=== PATIENT | female | born 1965 | race Caucasian/White ===

== ENCOUNTER 2019-07-18 22:55 | Inpatient (IN) | payer OTHER ==
[~2019-07-18] VITALS: Ht 165.1 cm; Wt 82.6 kg
[~2019-07-18 22:55] MED LIST: HUMULIN N100 UNIT/1 SQ; HUMULINR100 SQ
--- NOTE | 2019-07-18 23:15 | NUR ---
UNABLE TO OBTAIN EKG ON ARRIVAL. PATIENT ANXIOUS AND SOA. PHYSICIAN NOTIFIED.
[2019-07-18 23:16] VITALS: BP 142/87
[2019-07-19] VITALS (23 sets, daily range): BP systolic 93–137; BP diastolic 53–90
[2019-07-19 00:03] LABS: ABSOLUTE EOSINOPHILS 0.1 thou/uL (0.0-0.7); ABSOLUTE LYMPHOCYTES 1.2 thou/uL (0.8-5.3); ABSOLUTE MONOCYTES 0.6 thou/uL (0.0-1.2); ABSOLUTE NEUTROPHILS 5.4 thou/uL (1.6-8.1); BASOPHILS 0.5 %; EOSINOPHILS 1.2 %; HEMATOCRIT 34.6 % (37.0-47.0); HEMOGLOBIN 11.9 gm/dL (12.0-15.0); MCH 32.4 pg (26.0-34.0); MCHC 34.3 g/dL (28.0-37.0); MCV 94.5 fL (80.0-100.0); MONOCYTES 8.3 %; MPV 9.5 fl. (7.2-11.1); NUCLEATED RBCS 0 /100WBC; PLATELET COUNT* 334 thou/uL (150-400); RBC 3.66 mil/uL (4.20-5.00); RDW-CV 13.5 % (10.5-14.5); WBC 7.3 thou/uL (4.0-11.0)
[2019-07-19 00:21] LABS: PROTIME 9.8 Seconds (9.20-11.50)
[2019-07-19 00:31] LABS: CALCIUM 8.9 mg/dL (8.5-10.1); CREATININE 1.1 mg/dL (0.6-1.3); POTASSIUM 3.9 mmol/L (3.5-5.1)
[2019-07-19 00:40] LABS: ALBUMIN 2.7 g/dL (3.4-5.0); MAGNESIUM 2.1 mg/dL (1.8-2.4); TOTAL BILIRUBIN 0.6 mg/dL (<0.1-1.0)
[2019-07-19 01:31] LABS: BE -3.7 mmol/L (-2 to +3); PCO2 49.6 mmHg (35.0-45.0)
[2019-07-19 01:37] LABS: pH 7.287 (7.340-7.450)
[2019-07-19 01:38] LABS: PO2 163.7 mmHg (75.0-100.0)
--- NOTE | 2019-07-19 05:08 | NUR ---
PATIENT AWOKE WHEN RN IN ROOM ACCESSING GROIN SITE. PATIENT EDUCATION DONE WITH PATIENT ON PROCEDURE AND AFTERCARE. PATIENT PLACED ON 3LNC, TAKEN OFF NRB. O2 SATURATION MAINTAINING IN MID 90'S. PATIENT VERBALIZED UNDERSTANDING OF STATUS AND PLACEMENT. VERBALIZED THAT SHE WOULD LIKE TO BACK TO SLEEP IF SHE WAS ABLE TO.
[2019-07-19 09:38] LABS: HEMATOCRIT 32.3 % (37.0-47.0); HEMOGLOBIN 11.2 gm/dL (12.0-15.0); MCH 32.5 pg (26.0-34.0); MCHC 34.7 g/dL (28.0-37.0); MCV 93.7 fL (80.0-100.0); MPV 9.4 fl. (7.2-11.1); RBC 3.45 mil/uL (4.20-5.00); RDW-CV 13.6 % (10.5-14.5); WBC 7.9 thou/uL (4.0-11.0)
[2019-07-19 09:58] LABS: ALBUMIN 2.5 g/dL (3.4-5.0); ALKALINE PHOSPHATASE 323 U/L (46-116); ANION GAP 9 mmol/L (7-16); BUN 24 mg/dL (7-18); CALCIUM 8.5 mg/dL (8.5-10.1); CHLORIDE 94 mmol/L (98-107); CHOLESTEROL 143 mg/dL (<200); CO2 24 mmol/L (21-32); CREATININE 0.9 mg/dL (0.6-1.3); GLUCOSE 165 mg/dL (70-99); HDL CHOLESTEROL 39 mg/dL (>40); LDL CHOLESTEROL 87 mg/dL (<100); SGOT 78 U/L (15-37); SGPT 80 U/L (30-65); SODIUM 127 mmol/L (136-145); TC:HDL 3.7 Ratio (Not establshd); TOTAL BILIRUBIN 0.5 mg/dL (<0.1-1.0); TOTAL PROTEIN 7.5 g/dL (6.4-8.2); TRIGLYCERIDE 87 mg/dL (<150); VLDL 17 mg/dL (<40)
[2019-07-19 10:01] LABS: SERUM ASSESSMENT Clear; TROPONIN-I LEVEL 7.44 ng/mL (<0.06)
--- NOTE | 2019-07-19 10:48 | EKG ---
[place] [address] ELECTROCARDIOGRAM REPORT Name: MARCUS KABA Room: [address] ADM IN .R.#: [id number] Admission: 07/19/19 Attend Phys: Will Guillen, Discharge: Date of : 69 Date of Service: 07/18/19 2342 Report #: [id number] THIS REPORT FOR: //name// [facility] ED Test Date: 2019-07-18 Test Time: 23:42:31 Pat Name: MARCUS KABA Department: Room: [address] Gender: F Can Tender: [place] : 1965 Requested By: Nafisa Kim Order Number: [id number] Shahnaz MD: Leonel Flores Measurements Intervals [place] Rate: 113 P: 52 [place]: 120 QRS: 262 QRSD: 84 T: 36 QT: 317 QTc: 435 Interpretive Statements Sinus tachycardia artifact noted Inferoposterior infarct, acute (LCx) Anterolateral infarct, age indeterminate ST depression V1-V3, suggest recording posterior leads No previous ECG available for comparison Electronically Signed On 07-19-2019 10:47:27 CDT by Leonel Flores [email or web address] <ELECTRONICALLY SIGNED> By: Leonel Flores MD, [facility] 07/19/19 1047 2342 2342 Leonel Flores MD, [facility] /EPI
--- NOTE | 2019-07-19 10:50 | EKG ---
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[place] : 1965 Requested By: Nafisa Kim Order Number: [id number] MD: Leonel Flores Measurements Intervals [place] Rate: 112 P: 54 [place]: 126 QRS: -80 QRSD: 90 T: 60 QT: 319 QTc: 436 Interpretive Statements Sinus tachycardia Inferoposterior infarct, acute (LCx) Anterolateral infarct, age indeterminate ST depression V1-V3, suggest recording posterior leads Electronically Signed On 07-19-2019 10:48:35 CDT by Leonel Flores [email or web address] <ELECTRONICALLY SIGNED> By: Leonel Flores MD, [facility] 07/19/19 1048 2358 2358 Leonel Flores MD, [facility] /EPI
--- NOTE | 2019-07-19 10:50 | EKG ---
[place] [address] ELECTROCARDIOGRAM REPORT Name: MARCUS KABA Room: [address] ADM IN .R.#: [id number] Admission: 07/19/19 Attend Phys: Will Guillen, Discharge: Date of : 69 Date of Service: 07/19/19 0626 Report #: [id number] THIS REPORT FOR: //name// [facility] Test Date: 2019-07-19 Test Time: 06:26:27 Pat Name: MARCUS KABA Department: Room: [address] Gender: F Religious Assistant: [place] : 1965 Requested By: Leonel Flores Order Number: [id number] Shahnaz MD: Leonel Flores Measurements Intervals [place] Rate: 94 P: 54 [place]: 101 QRS: 268 QRSD: 86 T: 72 QT: 356 QTc: 446 Interpretive Statements Sinus rhythm Short AR interval Consider inferior infarct Posterior infarct, acute (LCx) Anterolateral infarct, age indeterminate ST elevation, consider inferior injury Electronically Signed On 07-19-2019 10:49:10 CDT by Leonel Flores [email or web address] <ELECTRONICALLY SIGNED> By: Leonel Flores MD, [facility] 07/19/19 1049 0626 0626 Leonel Flores MD, [facility] /EPI
--- NOTE | 2019-07-19 11:24 | CARD ---
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 Flores Manager [employer]oles[employer], Helene Myers RN RN, Cherry Mendez RTR Scrub, James Leon RTR Monitor Procedures Performed Left Heart Cath w/or w/o Coronaries [id number] [facility] BETINA Place w/wo Plasty Single CIRC [id number] Hemostasis w/ Angioseal Indication Abnormal ECG, STEMI (>6 hrs to = 12 hrs), Dyspnea Risk Factors Diabetes Admission/Lab Medications/Medications given during procedure Glycoprotein IllbIlla Inhibitors, Heparin Unfract., Zofran (Ondansetron) IV 4 mg, Lidocaine Subcut 20 ml, Lasix (Furosemide) IV 40 ml per hr, Promethazine IV 12.5 mg, Morphine IV 4 mg, Heparin IV 2000 units, Aggrastat IV 7.5 mcg per min Procedure Narrative The patient was brought emergently to the Cardiac Catheterization Laboratory and was prepped and draped in a sterile manner. The right femoral was infiltrated with 2% Lidocaine subcutaneous anesthesia. A [place] 6 FR sheath was inserted into the right femoral artery. Coronary angiography was performed using coronary diagnostic catheters. The right coronary system was accessed and visualized with a Diagnostic JR4 6Fr catheter. The left coronary system was accessed and visualized with a Diagnostic JL4 6Fr catheter. The left ventricle was accessed and visualized with a Diagnostic JR4 6Fr catheter. Left ventricular/Aortic Valve gradient assessed [place] [address] CARDIAC CATH REPORT Name: MARCUS KABA Room: [address]#: [id number] Admission: 07/19/19 Attend Phys: Will Guillen MD Discharge: Date of : 69 Report #: [id number] Closure device was deployed with a 6 Fr Angioseal STS 6Fr. The patient tolerated the procedure well and there were no complications associated with the procedure. There was no hematoma. Intraoperative Conscious Sedation Sedation start time: 104 Case end Time: 145 No sedation Fluoro Time: 8.8 minutes Dose: DAP 10077 cGycm2 1431.88 mGy Contrast Type and Amount: Visipaque 120 ml Coronary Angiography The patient's coronary anatomy is right dominant. Diagnostic Cath Left Main 30% proximal stenosis LAD chronically occluded after a small diagonal branch Circumflex appearred actuely occluded after 2 small marginal branches Right Coronary 30% proximal and mid stenosis noted. Collaterals noted from the distal RCA to the distal LAD Left Ventriculography Left Ventriculography was not performed. Hemodynamics The aortic pressure is 143/83 mmHg with a mean of 113 mmHg. The left ventricular pressure is 154/20 mmHg with a mean of mmHg. The left ventricular end diastolic pressure is 35 mmHg. There was no gradient across the aortic valve upon pullback. Pullback from the left ventricle to the aorta revealed no gradient across the aortic valve. PCI Technique Lesion Anticoagulation was achieved with Heparin. bolus and infusion of IV aggrastat given Percutaneous coronary intervention was performed on the mid circumflex artery segment. The lesion stenosis prior to intervention was 100% with GERRY 0 flow. A 6F XB 4.0 Guide Catheter was used to engage the Left ostium. A Choice PT Wire 182cm Interventional Guidewire was used to cross the lesion. BALLOON DILATION A Balloon catheter Trek RX 2.5 X 8 was inserted and inflated up to 6.00atm for 11seconds. Repeat [place] [address] CARDIAC CATH REPORT Name: MARCUS KABA Room: [address] IN .R.#: [id number] Admission: 07/19/19 Attend Phys: Will Guillen MD Discharge: Date of : 69 Report #: [id number] post-dilatation results: 50% stenosis with thrombus noted. Additional Inflation: 8.00atm for 9seconds. Additional Inflation: 8.00atm for 10seconds. Unable to cross the occluded circumflex with a BMW quide wire STENT DEPLOYMENT A drug-eluting stent Peterman RX Stent 2.5X34mm was inserted and inflated up to 7.00atm for 15seconds. Repeat angiography revealed the following post-stent deployment results: 0% stenosis. Additional Inflation: 7.00atm for 10seconds. Additional Inflation: 13.00atm for 10seconds. Final angiography reveals 0 % stenosis with GERRY 3 flow. Conclusion 1. Chronic occlusion of the mid LAD that filled retrograde by collaterals from the distal RCA 2. Acute occlusion of the mid circumflex artery. 3. successful placement of a drug eluting stent in the circumflex artery. 4. acute pulmonary edema treated with IV Lasix Recommendations Cardiac Rehabilitation Referral Agg[facility] Medical Therapy <ELECTRONICALLY SIGNED> By: Leonel Flores MD, [facility] 07/19/19 1122 21 1122Davidiego Flores MD, [facility] /INF
--- NOTE | 2019-07-19 12:32 | NUR ---
Nutrition: Pt admitted with NC. Consult recevied for DM. Pt has PMHx of DM. Meds noted. Labs: BG 165, albumin 2.5. Diet advanced to CHO controlled now. Wt: 182#. RD will follow up with pt when out of ICU to offer further DM educ. Protein stores are low. Hopeful for good po intake. Mild risk at this time. F/u 07/24/19.
[2019-07-19 12:44] LABS: AMP/METHAMP Negative (Negative); BARBITURATES Negative (Negative); BENZODIAZEPINES Negative (Negative); COCAINE Negative (Negative); METHADONE Negative (Negative); OPIATES POSITIVE (Negative); PCP Negative (Negative); THC Negative (Negative)
--- NOTE | 2019-07-19 12:54 | 2DMMODE ---
[place] [address] 2 D/M-MODE ECHOCARDIOGRAM Name: MARCUS KABA Room: [facility] ADM IN .R.#: [id number] Admission: 07/19/19 Attend Phys: Will Guillen, Discharge: Date of : 69 Date of Service: 07/19/19 1253 Report #: [id number] THIS REPORT FOR: cc: Leonel Flores MD, FACC, David R. MD FACC Blick, David R. MD FACC ~ APPROVED REPORT Study performed: 07/19/2019 10:10:53 EXAM: Comprehensive 2D, Doppler, and color-flow Echocardiogram Patient Location: In-Patient Room #: [facility] Status: routine BSA: 1.90 HR: 107 bpm BP: 115/73 mmHg Rhythm: NSR Other Information Study Quality: Good Risk Factors: Cardiac Risk Factors: DM Indications Abnormal ECG Acute [place] Congestive Heart Failure Pleural Effusion 2D Dimensions IVSd: 10.31 (7-11mm) LVOT Diam: 18.07 (18-24mm) LVDd: 48.79 mm PWd: 6.15 (7-11mm) Ascending Ao: 27.30 (22-36mm) LVDs: 38.43 (25-40mm) Aortic Root: 24.93 mm Volumes Left Atrial Volume (Systole) LA ESV Index: 27.20 mL/m2 Aortic Valve AoV Peak Riki.: 1.12 m/[place] [address] 2 D/M-MODE ECHOCARDIOGRAM Name: MARCUS KABA Room: [address] IN .R.#: [id number] Admission: 07/19/19 Attend Phys: Will Guillen, Discharge: Date of : 69 Date of Service: 07/19/19 1253 Report #: [id number] AO Peak Gr.: 5.02 mmHg LVOT Max P.47 mmHg AO Mean Gr.: 2.91 mmHg LVOT Mean P.33 mmHg LVOT Max V: 0.79 m/s AO V2 VTI: 17.87 cm LVOT Mean V: 0.54 m/s ZOILA (VTI): 1.88 cm2 LVOT V1 VTI: 13.08 cm Mitral Valve E/A Ratio: 2.95 MV Decel. Time: 132.55 ms MV E Max Riki.: 0.99 m/s MV PHT: 38.44 ms MVA (PHT): 5.72 cm2 TDI E/Lateral E': 9.90 E/Medial E': 9.90 Medial E' Riki.: 0.10 m/s Lateral E' Riki.: 0.10 m/s Pulmonary Valve PV Peak Riki.: 0.78 m/s PV Peak Gr.: 2.45 mmHg Tricuspid Valve RAP Estimate: 15.00 mmHg TR Peak Gr.: 48.31 mmHg RVSP: 63.00 mmHg PA Pressure: 63.00 mmHg Left Ventricle Left ventricle is mildly dilated. Akinesis noted of the posterolateral wall and apex There is normal left ventricular wall thickness. Left ventricular systolic function is moderately decreased. LVEF is 25-30%. Grade IV - fixed restrictive diastolic dysfunction. Right Ventricle The right ventricle is normal size. The right ventricular systolic function is normal. Atria The left atrium size is normal. The right atrium size is normal. Aortic Valve Mild aortic valve sclerosis. No aortic regurgitation is present. There is no aortic valvular stenosis[place] [address] 2 D/M-MODE ECHOCARDIOGRAM Name: MARCUS KABA Room: [address] IN [facility]#: [id number] Admission: 07/19/19 Attend Phys: Will Guillen, Discharge: Date of : 69 Date of Service: 07/19/19 1253 Report #: [id number] The mitral valve is normal in structure. Moderate mitral regurgitation. No evidence of mitral valve stenosis. Tricuspid Valve The tricuspid valve is normal in structure. Moderatetricuspid regurgitation. estimated pa pressure 55 mm Hg Pulmonic Valve The pulmonary valve is normal in structure. There is no pulmonic valvular regurgitation. Great Vessels The aortic root is normal in size. IVC is dilated and collapses <50% with inspiration. Pericardium There is no pericardial effusion. Left pleural effusion. <Conclusion> Left ventricle is mildly dilated. Akinesis noted of the posterolateral wall and apex LVEF is 25-30%. Mild aortic valve sclerosis. Moderate mitral regurgitation. Moderatetricuspid regurgitation. estimated pa pressure 55 mm Hg Left pleural effusion. <ELECTRONICALLY SIGNED> By: Leonel Flores MD, [facility] 07/19/19 1253 1253 1253 Leonel Flores MD, FAC /INF
--- NOTE | 2019-07-19 14:12 | CON ---
[address] [address] CONSULTATION Name: SENDYMARCUS Room: [address] IN M.R.#: [id number] Admission: 07/19/19 Attend Phys: Will Guillen MD Discharge: Date of : 69 Report #: [id number] THIS REPORT FOR: //name// cc: Leonel Flores MD [facility] Leonel Flores MD [facility] ~ THIS REPORT FOR: //name// CC: Will Flores DATE OF SERVICE: 07/19/2019 CARDIOLOGY CONSULTATION HISTORY OF PRESENT ILLNESS: The patient is a 53-year-old white female, diabetic, who I was asked to see in the Emergency Room after she complained of being short of breath and was noted to have an abnormal ECG. There are no old records available. No family members available. According to the patient, she has been short of breath for several days. She has noticed some lower extremity edema. She has no previous history of heart disease. Today, she became diaphoretic and nauseated. Her brought her to the Emergency Room tonight at approximately 11:00 p.m. ECG showed evidence of acute inferior ST-segment elevation myocardial infarction. I was asked to see her on an emergent basis. She is not very active and denies any recent chest pain, jaw pain, palpitations, syncope, fever or cough. PAST MEDICAL HISTORY: Only significant for . She has a long history of diabetes. MEDICATIONS: Her only medications include insulin and estrogen. ALLERGIES: She has no known drug allergies. FAMILY HISTORY: Positive for heart disease. SOCIAL HISTORY: She is . She and her live in [place], [place]. Quit smoking 10 years ago. Occasionally drinks alcohol. REVIEW OF SYSTEMS: No history of stroke, asthma, GI bleeding, liver disease, kidney disease, cancer, psychiatric illness or chronic skin condition. PHYSICAL EXAMINATION: GENERAL: Revealed a middle-aged female, appeared in moderate distress secondary to shortness of breath. VITAL SIGNS: Her blood pressure is 140/90, pulse is 100. HEENT: She is anicteric. Conjunctivae are pink. [place]ucous [place] [address] CONSULTATION Name: MARCUS KABA Robe Room: [address]#: [id number] Admission: 07/19/19 Attend Phys: Will Guillen MD Discharge: Date of : 69 Report #: [id number] NECK: Veins do not appear distended. No carotid bruits. CHEST: Decreased breath sounds at bases. CARDIOVASCULAR: Regular rate and rhythm, no murmur. ABDOMEN: Soft. EXTREMITIES: Had no edema. SKIN: Cool and dry. NEUROLOGIC: Nonfocal. DIAGNOSTIC DATA: ECG showed a sinus rhythm, ST-segment elevation in II, III and aVF, ST-segment depression in V1 through V3. Her chest x-ray showed cardiomegaly, bilateral pleural effusions and pulmonary edema. LABORATORY DATA: Sodium 126, potassium 3.9, creatinine 1.1, glucose 226, SGOT 103, alkaline phosphate 368, SGPT 92. Albumin 2.7. Her troponin is 7.1. BNP 4730. Her white blood cell count 7.3 and hematocrit 34.6. IMPRESSION AND RECOMMENDATIONS: 1. Acute inferior ST-segment elevation myocardial infarction. Recommend urgent cardiac catheterization. 2. Acute pulmonary edema. Recommend Lasix. We will check echocardiogram. 3. Diabetes. We will check lipid profile. 4. Previous tobacco abuse. The time on my Critical Care was from 12:00 a.m. until 2:00 a.m. for a total of 2 hours or 120 minutes. <ELECTRONICALLY SIGNED> By: Leonel Flores MD, FACC 07/19/19 1412 0215 0244Dtierney Flores MD, FACC /nt
--- NOTE | 2019-07-19 14:40 | NUR ---
ICU rounds: [address], may need open heart, cardiology following. SOB on o2, sats fine, possible PE. Type 1 diabetic, self monitoring at home. CM faxed PCP info to unit for nurse to provide Pt. Pt resides at home with . A&O. No DME. No hx of HH or SNF. Following.
[2019-07-19 15:04] LABS: URINE BILIRUBIN 1+ (Negative); URINE BLOOD 3+ (Negative); URINE CLARITY TURBID; URINE COLOR RED; URINE GLUCOSE-RANDOM NEGATIVE (Negative); URINE KETONES NEGATIVE (Negative); URINE LEUKOCYTES-REFLEX NEGATIVE (Negative); URINE NITRITE-REFLEX NEGATIVE (Negative); URINE PROTEIN TRACE (Negative); URINE SPECIFIC GRAVITY 1.015 (1.005-1.030)
[2019-07-19 15:15] LABS: ICTOTEST (BILI CONFIRMATORY) Negative (Negative)
[2019-07-19 15:17] LABS: BACTERIA-REFLEX 1-9 Few /HPF (None Seen); CASTS None Seen /LPF (None Seen); CRYSTALS None Seen /LPF (None Seen); SQUAMOUS 0-3 Few /LPF (0-3); URINE RBC >20 Many /HPF (0-2); URINE WBC-REFLEX 0-5 Rare /HPF (0-5)
--- NOTE | 2019-07-19 19:07 | NUR ---
PATIENT REMAINS SOA URINE OUT NEGLIGIBLE. DENIES PAIN. PROGRESSING.
[2019-07-20] VITALS (21 sets, daily range): BP systolic 68–112; BP diastolic 30–76
[2019-07-20 03:07] LABS: GLYCOHEMOGLOBIN (HGB A1C) 8.9 % (4.8-5.6)
[2019-07-20 03:36] LABS: HEMATOCRIT 30.3 % (37.0-47.0); HEMOGLOBIN 10.4 gm/dL (12.0-15.0); MCH 32.3 pg (26.0-34.0); MCHC 34.3 g/dL (28.0-37.0); MCV 93.9 fL (80.0-100.0); MPV 9.3 fl. (7.2-11.1); RBC 3.22 mil/uL (4.20-5.00); RDW-CV 13.6 % (10.5-14.5); WBC 7.4 thou/uL (4.0-11.0)
[2019-07-20 04:07] LABS: ALBUMIN 2.5 g/dL (3.4-5.0); CREATININE 1.7 mg/dL (0.6-1.3); POTASSIUM 5.5 mmol/L (3.5-5.1); TOTAL BILIRUBIN 0.6 mg/dL (<0.1-1.0)
[2019-07-20 04:12] LABS: TROPONIN-I LEVEL 8.16 ng/mL (<0.06)
--- NOTE | 2019-07-20 04:39 | NUR ---
ASSUMED PATEINT CARE AT 1900. PATIENT VERY ANXIOUS AND STILL FEELING LIKE IT IS DIFFICULT TO BREATHE. O2 SATURATION 100% ON 2L NC. ABLE TO MOVE INDEPENDENTLY IN BED AND WILL SIT ON THE SIDE OF THE BED. BRISCOE REMOVED PER PATIENT REQUEST. SEE DOCUMENTED OUTPUT. PATIENT UP TO BSC WITHOUT SUCCESS FOR URINATION OR BM. ALERT AND ORIENTED TIMES FOUR. NO COMPLAINTS OF PAIN. STONE POLISHER MACHINE COMPLETED DOCUMENTED
--- NOTE | 2019-07-20 09:57 | EKG ---
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1965 Requested By: Leonel Flores Order Number: [id number] Reading MD: Leonel Flores Measurements Intervals [place] Rate: 100 P: 19 MS: 112 QRS: -83 QRSD: 90 T: 73 QT: 345 QTc: 445 Interpretive Statements Sinus tachycardia Inferoposterior infarct, acute (LCx) Anterolateral infarct, age indeterminate ST depression V1-V3, suggest recording posterior leads Compared to ECG 07/19/2019 06:26:27 Sinus rhythm no longer present Short MS interval no longer present Myocardial infarct finding still present ST (T wave) deviation still present Electronically Signed On 07-20-2019 9:55:44 CDT by Leonel Flores [email or web address] <ELECTRONICALLY SIGNED> By: Leonel Flores MD, [facility] 07/20/1953 0 075 Leonel Flores MD, [facility] /EPI
--- NOTE | 2019-07-20 11:56 | NUR ---
ICU rounds: Plan life vest at dc. Continue in ICU
--- NOTE | 2019-07-20 18:13 | NUR ---
PATIENT LESS SOA. UP IN CHAIR DENIES CP. MINIMAL VOID 125 ML. K+ CALLED TO DR DEVRIES. RECIEVED ORDERS TX SEE FLOW SHEETS.
[2019-07-20 20:00] LABS: CALCIUM 8.4 mg/dL (8.5-10.1); POTASSIUM 5.9 mmol/L (3.5-5.1)
[2019-07-21] VITALS (16 sets, daily range): BP systolic 89–123; BP diastolic 51–78
[2019-07-21 02:07] LABS: HEPATITIS B SURFACE AG Negative (Negative)
[2019-07-21 03:31] LABS: HEMATOCRIT 31.8 % (37.0-47.0); HEMOGLOBIN 10.7 gm/dL (12.0-15.0); MCH 31.9 pg (26.0-34.0); MCHC 33.7 g/dL (28.0-37.0); MCV 94.8 fL (80.0-100.0); MPV 9.1 fl. (7.2-11.1); RBC 3.36 mil/uL (4.20-5.00); WBC 6.3 thou/uL (4.0-11.0)
[2019-07-21 04:00] LABS: ALBUMIN 2.7 g/dL (3.4-5.0); CALCIUM 9.2 mg/dL (8.5-10.1); MAGNESIUM 2.3 mg/dL (1.8-2.4); PHOSPHORUS* 4.4 mg/dL (2.5-4.9); POTASSIUM 5.1 mmol/L (3.5-5.1)
--- NOTE | 2019-07-21 06:35 | NUR ---
VITALS STABLE, AFEBRILE. UOP 250 CC, NO BM. PT DENIES PAIN. SLEPT THROUGH THE NIGHT. ABLE TO GET TO COMMODE WITH SOME ASSISTANCE. PT ANXIOUS AT TIMES, VERBALIZES SHE IS HAPPY SHE IS SOMEWHAT PROGRESSING. NO ACUTE CHANGES OTHERWISE. CALL LIGHT WITHIN REACH. WILL CONTINUE MONITORING.
--- NOTE | 2019-07-21 18:41 | NUR ---
PATIENT REMAINS IN ICU DOPAMINE RUNNING. ALERT CO SOA POST LINE PLLACEMENT. DOPAMINE CHANGED TO DOBUTAMINE. PER DR DE LA GARZA.
[2019-07-22] VITALS (29 sets, daily range): BP systolic 91–132; BP diastolic 44–73
[2019-07-22 06:02] LABS: ALBUMIN 2.4 g/dL (3.4-5.0); CALCIUM 8.3 mg/dL (8.5-10.1); CREATININE 1.2 mg/dL (0.6-1.3); TOTAL BILIRUBIN 0.7 mg/dL (<0.1-1.0); TOTAL PROTEIN 6.8 g/dL (6.4-8.2)
--- NOTE | 2019-07-22 17:23 | NUR ---
PT OUT OF BED AND SAT ON A RECLINER FOR FEW HOURS. DOBUTAMINE CONTD AT 5 MCG/KH/MIN AND LASIX DRIP AT 5MG/HR. NO C/O CHEST PAIN. TOLERATING DIET. UP TO THE BSC FOR VOIDING, STB ASSIST. HELPED WITH SELF CARE BATH. STATES FEELING BETTER. RAMBO FROM [employer] CALLED AND STATED SHE WILL BE HERE TOMORROW MORNING TO ASSESS THE PATIENT.
[2019-07-23] VITALS (23 sets, daily range): BP systolic 91–124; BP diastolic 48–78
[2019-07-23 00:58] LABS: URINE BILIRUBIN NEGATIVE (Negative); URINE BLOOD NEGATIVE (Negative); URINE CLARITY CLEAR; URINE COLOR YELLOW; URINE GLUCOSE-RANDOM 1+ (Negative); URINE KETONES NEGATIVE (Negative); URINE LEUKOCYTES NEGATIVE (Negative); URINE NITRITE NEGATIVE (Negative); URINE PROTEIN NEGATIVE (Negative)
[2019-07-23 05:37] LABS: HEMATOCRIT 26.9 % (37.0-47.0); HEMOGLOBIN 9.3 gm/dL (12.0-15.0); MCH 32.1 pg (26.0-34.0); MCHC 34.7 g/dL (28.0-37.0); MCV 92.6 fL (80.0-100.0); MPV 8.6 fl. (7.2-11.1); RBC 2.9 mil/uL (4.20-5.00); RDW-CV 13.5 % (10.5-14.5); WBC 7.3 thou/uL (4.0-11.0)
[2019-07-23 05:57] LABS: CALCIUM 7.8 mg/dL (8.5-10.1); CREATININE 1.1 mg/dL (0.6-1.3); MAGNESIUM 1.8 mg/dL (1.8-2.4)
[2019-07-23 06:01] LABS: ALBUMIN 2.3 g/dL (3.4-5.0); CREATININE 1.1 mg/dL (0.6-1.3); PHOSPHORUS* 2.8 mg/dL (2.5-4.9)
--- NOTE | 2019-07-23 06:16 | NUR ---
VITALS STABLE, AFEBRILE. SLEPT THROUGH THE NIGHT, COMPLAINS OF SOME ABDOMINAL PAIN. STATES IT'S PROBABLY FROM HER COUGHING. NO BM, 400CC UOP. NO ACUTE CHANGES OTHERWISE. CALL LIGHT WITHIN REACH. WILL CONTINUE MONITORING.
--- NOTE | 2019-07-23 17:40 | NUR ---
DOBUTAMINE DRIP AND LASIX DRIP TURNED OFF THIS AM. VSS. INSULIN PER PROTOCOL. TOLERATING DIET. UOP 1600 MLS. TELE STATUS. C/O DULL ABD PAIN, GENERALISED. HYDROCODONE GIVEN ONCE THIS SHIFT.
[2019-07-24 00:05] VITALS: BP 115/75
[2019-07-24 05:37] LABS: HEMATOCRIT 29.3 % (37.0-47.0); MCH 31.7 pg (26.0-34.0); MCHC 34.1 g/dL (28.0-37.0); MCV 92.9 fL (80.0-100.0); MPV 8.4 fl. (7.2-11.1); RBC 3.16 mil/uL (4.20-5.00); RDW-CV 13.3 % (10.5-14.5); WBC 9.6 thou/uL (4.0-11.0)
[2019-07-24 05:46] LABS: ALBUMIN 2.2 g/dL (3.4-5.0); CALCIUM 8.3 mg/dL (8.5-10.1); CREATININE 0.9 mg/dL (0.6-1.3); PHOSPHORUS* 2.9 mg/dL (2.5-4.9); POTASSIUM 4.3 mmol/L (3.5-5.1); TOTAL BILIRUBIN 0.4 mg/dL (<0.1-1.0); TOTAL PROTEIN 6.8 g/dL (6.4-8.2)
--- NOTE | 2019-07-24 05:51 | NUR ---
VITALS STABLE, AFEBRILE. PT SLEPT THROUGH THE NIGHT. NO BM/UOP. DENIES PAIN. CALL LIGHT WITHIN REACH. WILL CONTINUE MONITORING.
[2019-07-24 08:00] VITALS: BP 106/65
--- NOTE | 2019-07-24 09:31 | CON ---
[address] [address] CONSULTATION Name: MARCUS KABA Room: [address] ADM IN M.R.#: [id number] Admission: 07/19/19 Attend Phys: Will Giullen MD Discharge: Date of : 69 Report #: [id number] THIS REPORT FOR: //name// cc: Leonel Flores MD [facility] Leonel Flores MD [facility] ~ THIS REPORT FOR: //name// CC: Will Flores DATE OF SERVICE: 07/21/2019 NEPHROLOGY CONSULTATION CONSULTING PHYSICIAN: Dr. Flores. REASON FOR NEPHROLOGY CONSULTATION: Acute kidney injury. REASON FOR ADMISSION: Shortness of breath. HISTORY OF PRESENT ILLNESS: This is a 53-year-old female with past medical history of diabetes type 1 since she was 5 years old with diabetic retinopathy, not following with PCP. He does follow with Ophthalmology every 3 months, does take insulin at home and treats diabetes on her own, came in with acute shortness of breath for 3-4 days prior to admission. Started with nausea, vomiting and diarrhea, which then led to the patient being short of breath, even on mild exertion and orthopnea. There was bilateral lower extremity swelling when she came in and chest pain. She has abnormal EKG consistent with inferior wall DE. When she showed up in the ED, she was seen by Cardiology, immediately taken to the clinical lab clerk. She had a drug-eluting stent placed in the circumflex. She had a creatinine of 0.9 when she came in. She was diuresed because of bilateral pleural effusions and bilateral lower extremity edema with Lasix 40 mg IV b.i.d. initially, then Lasix drip started from yesterday. Creatinine went up to 1.7 yesterday and it is 2.0 today and hence Nephrology was consulted. She had a Ruiz catheter initially but that was then removed. She is nonoliguric, but overall urine output is not too high. She does take Aleve at home, but she has not been getting any here. There is no history of any kidney stones. She also has hyponatremia. Her blood glucose was also running high, but now it is a little bit better. Her A1c has been 8.9. Also, her blood pressure had been running low. It was as low as 85/53 yesterday, but has improved today. Her cardiac catheterization was 2 days ago. EF was found to be 25-30% with grade 4 diastolic dysfunction with RVSP of 55 mmHg. REVIEW OF SYSTEMS: She is anxious. She was also short [place] [address] CONSULTATION Name: MARCUS KABA Room: [address] IN .R.#: [id number] Admission: 07/19/19 Attend Phys: Will Guillen MD Discharge: Date of : 69 Report #: [id number] ALLERGIES: No known drug allergies. REVIEW OF SYSTEMS: As above, otherwise 10-point review of systems done, negative. HOME MEDICATIONS: Include insulin and low-dose aspirin and she uses Aleve as needed. PAST MEDICAL AND SURGICAL HISTORY: Includes diabetes type 1 since she was 5, diabetic retinopathy, and . SURGICAL HISTORY: As mentioned above. FAMILY HISTORY: History of heart disease in her family and history of hypertension, but no history of any kidney disease that the patient knows of. SOCIAL HISTORY: She is a former smoker. She drinks about 2-3 glasses of wine a week. She has 1 child and during her , she had problems with hypoglycemia, but no history of multiple abortions or preeclampsia noted. She does not use recreational drugs. 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 PHYSICAL EXAMINATION: VITAL SIGNS: Blood pressure is 107/66. She is afebrile, pulse rate is 95, temperature is 17, pulse ox is 98%. She is on no oxygen right now. GENERAL: She is awake, alert and oriented, looks mildly anxious. HEAD AND EYES: Atraumatic and normocephalic. Normal conjunctivae. EARS, NOSE, AND THROAT: Normal ears and nose. Mucous membranes are moist. CHEST: Bilateral diminished breath sounds posteriorly. No crackles heard posteriorly. No wheezing heard posteriorly. CARDIOVASCULAR: S1 and S2 normal. No murmurs. ABDOMEN: Mildly distended and abdomen is not very soft. Bowel sounds are decreased. EXTREMITIES: There is currently no lower extremity edema. She does overall looks puffy. SKIN: Warm and dry. NEUROLOGIC: Neurological function grossly intact. PSYCHIATRIC: Mood urena, she seems to be mildly anxious and she is a little tachypneic. LABORATORY DATA: WBC 6.3, hemoglobin is 10.7. Sodium is 124, potassium is 5.1, chloride is 91, BUN is 45, creatinine was 2.0. Albumin was 2.7. TSH was 5.8. A1c was 8.9. Lactate was 3.0 and other labs were reviewed. IMAGING: Chest x-ray and abdominal ultrasound were reviewed. ASSESSMENT: [address] [place] [address] CONSULTATION Name: MARCUS KABA Room: [address] IN [place]#: [id number] Admission: 07/19/19 Attend Phys: Will Guillen MD Discharge: Date of : 69 Report #: [id number] 1. This is acute kidney injury which is in the setting of contrast-induced nephropathy, hypotension, low ejection fraction 25-30% and use of diuretics. The patient apparently was fluid overloaded. When she came in, her ejection fraction was only 25-30% and she received contrast for cardiac catheterization 2 days ago. Her creatinine at baseline was 0.9 and it is up to 2.0 now. UA when she first came to the hospital was reviewed, had trace protein, 3+ blood, that was a catheterized specimen, it will be repeated. Abdominal ultrasound was reviewed. Complete renal ultrasound will be done. Right kidney was unremarkable on abdominal ultrasound. 2. Hyponatremia. Adjust her sodium is 126, this is in the setting of total body fluid overload and she has a low ejection fraction of 25-30%, which is also contributing, causing state of increased ADH. 3. Inferior wall myocardial infarction. The patient is status post drug-eluting stent to circumflex and Cardiology is following. 4. Acute versus acute on chronic systolic congestive heart failure, ejection fraction of 25-30% only with pulmonary hypertension, right ventricular systolic pressure of 55 mmHg with grade 4 diastolic dysfunction. The patient was fluid overloaded and slowly improving. 5. Hypoalbuminemia. 6. History of diabetes type 1, not following with primary care physician, not controlled. A1c is 8.9. She has diabetic retinopathy as well. 7. TSH is 5.8, started on thyroid supplementation during this admission. 8. Elevated transaminases. 9. She also has anxiety. 10. Hyperkalemia, which is now improved. PLAN: 1. Her lungs still do not sound clear and she still has evidence of fluid on her chest x-ray. We will decrease her Lasix drip, but we will still continue with 5 mL an hour. 2. She is not retaining urine on bladder scan. Postvoid residual was only 20 mL. Strict I's and O's should be maintained. 3. Agree with 1.5 liters fluid restriction. 4. We may have to live with some compromised kidney function, but I would like to avoid other nephrotoxic agents like more contrast or NSAIDs. Even BOSSMAN inhibitors and ARB should be held right now. 5. We will check UA, U-PCR, and renal ultrasound. Blood pressure is better now, if it drops again she might need inotropic support. 6. She should be on low potassium diet. Thank you for this consultation. Please check morning labs. We will continue to follow along with you. <ELECTRONICALLY SIGNED> By: Jaqueline Marley MD 07/24/19 0931 0928 1051Ahorace Marley MD /nt
--- NOTE | 2019-07-24 10:01 | NUR ---
Nutrition: follow up note. Type 1 DM, pt doesn't follow PCP. A1c 8.9%. Alb 2.2, prealb 16.8, BG 162. MALIHA from contrast dye. Tolerating diet, CHO controlled. Wt: 182#. Will defer DM education while in ICU. RD available for education via consult when pt out of ICU. Otherwise, consider mild nutrition risk.
[2019-07-24 13:21] VITALS: BP 109/76
--- NOTE | 2019-07-24 13:21 | NUR ---
DIDI spoke with pt nurse for ICU rounds: Pt to receive Life Vest today, nephrology signed off and cardiology approval for dc soon. Possible dc tomorrow; SW to continue to follow to assist with safe dc planning.
[2019-07-24 16:00] VITALS: BP 124/80
--- NOTE | 2019-07-24 17:55 | NUR ---
PT A&O X4. VSS. O2 SATS >92% IN RA. C/O MILD ABD PAIN, DENIED PAIN MEDS. NO CHEST PAIN OR ANXIETY. LIFE VEST PUT ON BY JASPAL FROM [facility] AND PT WAS EDUCATED ON IT. SHE WALKED THE ICU CONN WITH PT. PT RECOMMEDS WHEELCHAIR FOR DISCHARGE. TOLERATING DIET, INSULIN GIVEN PER PROTOCOL. VOIDING PER BSC, UP AD BHAVESH.
[2019-07-25] VITALS: BP 107/69
[2019-07-25 04:00] VITALS: BP 115/67
[2019-07-25 06:59] LABS: HEMATOCRIT 28.5 % (37.0-47.0); HEMOGLOBIN 9.6 gm/dL (12.0-15.0); MCH 31.6 pg (26.0-34.0); MCHC 33.7 g/dL (28.0-37.0); MCV 93.8 fL (80.0-100.0); MPV 8.5 fl. (7.2-11.1); RBC 3.04 mil/uL (4.20-5.00); RDW-CV 13.8 % (10.5-14.5); WBC 7.1 thou/uL (4.0-11.0)
[2019-07-25 07:07] LABS: CALCIUM 8.5 mg/dL (8.5-10.1); CREATININE 0.9 mg/dL (0.6-1.3); POTASSIUM 4.4 mmol/L (3.5-5.1)
--- NOTE | 2019-07-25 07:44 | NUR ---
ASSUMED PT CARE AT 1910. NURSING ASSESSMENT COMPLETED AT START OF SHIFT. PT DENIES PAIN THIS SHIFT. HOURLY ROUNDING COMPLETED. CALL LIGHTH WITHIN REACH. PT DENIES CHEST PAIN THIS SHIFT.
[2019-07-25 08:00] VITALS: BP 117/72
[2019-07-25 12:00] VITALS: BP 92/60
[2019-07-25] MEDS ORDERED: CARVEDILOL3.125 MG PO (12:29)
[2019-07-25] MEDS ORDERED: LASIX 40 MG TAB40 M1 PO (12:29)
[2019-07-25] MEDS ORDERED: LEVOTHYROXINE125 MCG PO (12:29)
[2019-07-25] MEDS ORDERED: CLOPIDOGREL75 MG PO (12:29)
[2019-07-25] MEDS ORDERED: LIPITOR 40 MG T40 M1 PO (12:29)
[2019-07-25] MEDS ORDERED: ASPIR 8181 MG PO (12:29)
[2019-07-25 12:37] VITALS: BP 92/60
[2019-07-25 14:25] VITALS: BP 92/60
== END 2019-07-25 15:45 | disposition home or self-care (01) | DRG 246 ==
LOC: M.CL 22:55 → M.ERS 22:55 → M.CL 07-19 00:40 → M.TBA-ER 07-19 02:23 → M.ICU 07-19 02:23 → M.2W 07-24 18:41
PROVIDERS: Emergency Medicine; Family Medicine; Internal Medicine; Internal Medicine Cardiovascular Disease; Internal Medicine Nephrology; ADMIT Internal Medicine
PROC: 4A023N7 Measurement of Cardiac Sampling and Pressure, Left Heart, Percutaneous Approach (ICD-10-PCS; principal; 2019-07-19)
PROC: 027034Z Dilation of Coronary Artery, One Artery with Drug-eluting Intraluminal Device, Percutaneous Approach (ICD-10-PCS; principal; 2019-07-19)
PROC: B211YZZ Fluoroscopy of Multiple Coronary Arteries using Other Contrast (ICD-10-PCS; principal; 2019-07-19)
PROC: 02HV33Z Insertion of Infusion Device into Superior Vena Cava, Percutaneous Approach (ICD-10-PCS; 2019-07-21)
DX: I21.19 ST elevation (STEMI) myocardial infarction involving other coronary artery of inferior wall (principal); I50.23 Acute on chronic systolic (congestive) heart failure; E87.1 Hypo-osmolality and hyponatremia; N17.9 Acute kidney failure, unspecified; N14.2 Nephropathy induced by unspecified drug, medicament or biological substance; T50.8X5A Adverse effect of diagnostic agents, initial encounter; I95.9 Hypotension, unspecified; E10.319 Type 1 diabetes mellitus with unspecified diabetic retinopathy without macular edema; E88.09 Other disorders of plasma-protein metabolism, not elsewhere classified; R06.03 Acute respiratory distress; R09.02 Hypoxemia; E66.3 Overweight; E03.9 Hypothyroidism, unspecified; E55.9 Vitamin D deficiency, unspecified; E87.5 Hyperkalemia; F41.9 Anxiety disorder, unspecified; Z68.30 Body mass index [BMI] 30.0-30.9, adult; Z87.891 Personal history of nicotine dependence; Z98.891 History of uterine scar from previous surgery; Z79.4 Long term (current) use of insulin; Z82.49 Family history of ischemic heart disease and other diseases of the circulatory system; Y92.89 Other specified places as the place of occurrence of the external cause; Z03.818 Encounter for observation for suspected exposure to other biological agents ruled out

== ENCOUNTER → 2019-08-03 | Outpatient (CLI) | payer OTHER ==
[~2019-08-03] MED LIST changes: +ASPIR 8181 MG PO; +CARVEDILOL3.125 MG PO; +CLOPIDOGREL75 MG PO; +LASIX 40 MG TAB40 M1 PO; +LEVOTHYROXINE125 MCG PO; +LIPITOR 40 MG T40 M1 PO
[2019-08-03 11:53] LABS: CALCIUM 8.9 mg/dL (8.5-10.1); CREATININE 1.5 mg/dL (0.6-1.3)
[2019-08-03 12:06] LABS: POTASSIUM 2.8 mmol/L (3.5-5.1)
== END ==
LOC: M.LAB 11:16
PROVIDERS: Registered Nurse
DX: J90 Pleural effusion, not elsewhere classified (principal); I25.5 Ischemic cardiomyopathy

== ENCOUNTER 2019-08-07 15:06 | Inpatient (IN) | payer OTHER ==
[~2019-08-07] VITALS: Ht 165.1 cm; Wt 84.4 kg
[2019-08-07] VITALS (13 sets, daily range): BP systolic 70–105; BP diastolic 39–73
[2019-08-07] MEDS ORDERED: EFFER-K 20 MEQ20 ME1 PO (15:26)
[2019-08-07 15:56] LABS: ABSOLUTE BASOPHILS 0.1 thou/uL (0.0-0.2); ABSOLUTE EOSINOPHILS 0.3 thou/uL (0.0-0.7); ABSOLUTE LYMPHOCYTES 0.8 thou/uL (0.8-5.3); ABSOLUTE MONOCYTES 0.8 thou/uL (0.0-1.2); ABSOLUTE NEUTROPHILS 5.1 thou/uL (1.6-8.1); BASOPHILS 1.3 %; HEMOGLOBIN 10.8 gm/dL (12.0-15.0); LYMPHOCYTES 11.6 %; MCH 31.1 pg (26.0-34.0); MCHC 33.8 g/dL (28.0-37.0); MCV 92.1 fL (80.0-100.0); MONOCYTES 10.6 %; MPV 9.5 fl. (7.2-11.1); NUCLEATED RBCS 0 /100WBC; PLATELET COUNT* 322 thou/uL (150-400); POLYS 72.5 %; RBC 3.48 mil/uL (4.20-5.00); RDW-CV 14.9 % (10.5-14.5); WBC 7.1 thou/uL (4.0-11.0)
[2019-08-07 16:03] LABS: CALCIUM 8.5 mg/dL (8.5-10.1); CREATININE 5.8 mg/dL (0.6-1.3)
[2019-08-07 16:14] LABS: ALBUMIN 2.4 g/dL (3.4-5.0); TOTAL BILIRUBIN 0.8 mg/dL (<0.1-1.0)
[2019-08-07 16:15] LABS: APTT 26.2 Seconds (25.0-31.3); INR 1.1; PROTIME 11.7 Seconds (9.20-11.50)
--- NOTE | 2019-08-07 16:59 | EKG ---
[place] [address] ELECTROCARDIOGRAM REPORT Name: MARCUS KABA Room: [facility]#: [id number] Admission: 08/07/19 Attend Phys: Discharge: Date of : 69 Date of Service: 08/07/19 1526 Report #: [id number] THIS REPORT FOR: //name// [facility] ED Test Date: 2019-08-07 Test Time: 15:26:48 Pat Name: MARCUS KABA Department: Room: Gender: F District [address] Administrator: [place] : 1965 Requested By: Tahiar Bobo Order Number: [id number] MD: Jovani oMnahan Measurements Intervals [place] Rate: 119 P: 64 RI: 132 QRS: 210 QRSD: 97 T: 123 QT: 380 QTc: 535 Interpretive Statements Sinus tachycardia Consider inferior infarct Anterolateral infarct, age indeterminate Baseline wander in lead(s) V2 Compared to ECG 07/20/2019 07:51:50 ST (T wave) deviation no longer present Myocardial infarct finding still present Electronically Signed On 08-07-2019 16:57:31 CDT by Jovani Monahan [email or web address] <ELECTRONICALLY SIGNED> By: Jovani Monahan MD, FAC 08/07/19 1657 1526 1526 Jovani Monahan MD, [facility] /EPI
[2019-08-07] MEDS ORDERED: METOLAZONE 5 MG5 MG PO (18:03)
[2019-08-07] MEDS ORDERED: SPIRONOLACTONE25 MG PO (20:53)
[2019-08-07] MEDS ORDERED: AMBIEN5 MG PO (20:54)
[2019-08-07] MEDS ORDERED: LISINOPRIL2.5 MG PO (20:54)
[2019-08-07 22:57] LABS: URINE BLOOD NEGATIVE (Negative); URINE CLARITY CLEAR; URINE COLOR YELLOW; URINE GLUCOSE-RANDOM NEGATIVE (Negative); URINE KETONES TRACE (Negative); URINE LEUKOCYTES-REFLEX NEGATIVE (Negative); URINE NITRITE-REFLEX NEGATIVE (Negative); URINE PROTEIN TRACE (Negative); URINE SPECIFIC GRAVITY >= 1.030 (1.005-1.030); URINE UROBILINOGEN 0.2 E.U./dl (0.2-1.0)
[2019-08-07 22:58] LABS: URINE BILIRUBIN 1+ (Negative)
[2019-08-07 23:01] LABS: ICTOTEST (BILI CONFIRMATORY) Positive (Negative)
[2019-08-08] VITALS (38 sets, daily range): BP systolic 79–110; BP diastolic 28–66
[2019-08-08 04:10] LABS: ALBUMIN 2.3 g/dL (3.4-5.0); CALCIUM 7.7 mg/dL (8.5-10.1); CREATININE 5.4 mg/dL (0.6-1.3); MAGNESIUM 2.4 mg/dL (1.8-2.4); POTASSIUM 4.6 mmol/L (3.5-5.1); TOTAL BILIRUBIN 0.7 mg/dL (<0.1-1.0); TOTAL PROTEIN 6.5 g/dL (6.4-8.2)
--- NOTE | 2019-08-08 15:24 | 2DMMODE ---
[place] [address] 2 D/M-MODE ECHOCARDIOGRAM Name: MARCUS KABA Robe Room: 003-P ADM IN .R.#: [id number] Admission: 08/07/19 Attend Phys: Onur Andersen Discharge: Date of : 69 Date of Service: 08/08/19 1523 Report #: [id number] THIS REPORT FOR: cc: FAM - No family physician/PCP FAM - No family physician/PCP Truman Conde MD [facility] ~ APPROVED REPORT Study performed: 08/08/2019 10:35:47 EXAM: Limited 2D Echocardiogram Patient Location: In-Patient Room #: 003 Status: routine BSA: 1.96 HR: 93 bpm BP: 94/55 mmHg Rhythm: NSR Other Information Study Quality: Good Volumes Left Atrial Volume (Systole) LA ESV Index: 30.20 mL/m2 Left Ventricle The left ventricle is normal size. The inferior and inferolateral wall are akinetic from base to apex. There is normal left ventricular wall thickness. Left ventricular systolic function is mild to moderately decreased. LVEF is 40-45%. Transmitral Doppler flow pattern suggests restrictive physiology. Right Ventricle The right ventricle is normal size. The right ventricular systolic function is normal. Atria The left atrium size is normal. The right atrium size is normal. Aortic Valve Mild aortic valve sclerosis[place] [address] 2 D/M-MODE ECHOCARDIOGRAM Name: MARCUS KABA Room: [address] IN M.R.#: [id number] Admission: 08/07/19 Attend Phys: Onur Andersen Discharge: Date of : 69 Date of Service: 08/08/19 1523 Report #: [id number] The mitral valve is normal in structure. Tricuspid Valve The tricuspid valve is normal in structure. Pulmonic Valve The pulmonary valve is normal in structure. Great Vessels The aortic root is normal in size. IVC is normal in size and collapses >50% with inspiration. Pericardium There is no pericardial effusion. Large left pleural effusion. <Conclusion> The left ventricle is normal size. There is normal left ventricular wall thickness. Left ventricular systolic function is mild to moderately decreased. LVEF is 40-45%. Transmitral Doppler flow pattern suggests restrictive physiology. The inferior and inferolateral wall are akinetic from base to apex. Mild aortic valve sclerosis. IVC is normal in size and collapses >50% with inspiration. Large left pleural effusion. <ELECTRONICALLY SIGNED> By: Truman Conde MD, [facility] 08/08/19 1523 1523 1523 Truman Conde MD, FACC /INF
[2019-08-09] VITALS (61 sets, daily range): BP systolic 88–114; BP diastolic 40–62
[2019-08-09 04:10] LABS: HEMATOCRIT 30.8 % (37.0-47.0); HEMOGLOBIN 10.3 gm/dL (12.0-15.0); MCH 30.7 pg (26.0-34.0); MCHC 33.3 g/dL (28.0-37.0); MCV 92.1 fL (80.0-100.0); MPV 9.1 fl. (7.2-11.1); RBC 3.34 mil/uL (4.20-5.00); RDW-CV 14.8 % (10.5-14.5); WBC 8.4 thou/uL (4.0-11.0)
[2019-08-09 04:24] LABS: ALBUMIN 2.3 g/dL (3.4-5.0); CALCIUM 7.9 mg/dL (8.5-10.1); MAGNESIUM 2.1 mg/dL (1.8-2.4); PHOSPHORUS* 3.8 mg/dL (2.5-4.9)
[2019-08-09 04:56] LABS: CREATININE 4.2 mg/dL (0.6-1.3)
--- NOTE | 2019-08-09 13:00 | CON ---
[address] [address] CONSULTATION Name: SENDYMARCUS Robe Room: [address] ADM IN M.R.#: [id number] Admission: 08/07/19 Attend Phys: Mack Howard Discharge: Date of : 69 Report #: [id number] THIS REPORT FOR: //name// cc: TONYA Hope family physician/PCP TONYA Hope family physician/PCP ~ THIS REPORT FOR: //name// CC: Leonel Flores [facility] physician/PCP Onur Andersen NEPHROLOGY CONSULTATION CONSULTING PHYSICIAN: Onur Andersen DO REASON FOR CONSULTATION: Acute kidney injury. HISTORY OF PRESENT ILLNESS: A 53-year-old female who was admitted after recently being hospitalized with a complaint of shortness of breath. She was found to have some low blood pressures, initially got a small fluid bolus, was found to be hyponatremic and had an elevated creatinine of 5.4. She during her last hospital course was found to have a cardiogenic component to her hypotension. She does have underlying EF of 25-30% with diastolic dysfunction and pulmonary hypertension. She had a creatinine on baseline of 0.9, it peaked at 2 on 07/20/2019 in which she was treated with Lasix drip as well as dobutamine and her creatinine eventually came down to 0.9 on 07/25/2019 and she was subsequently discharged. Currently, she says she is feeling better. She has no complaints at present time. REVIEW OF SYSTEMS: Constitutional, psych, heme, eyes, ENT, respiratory, cardiac, GI, , endocrine, all negative except as documented above. PAST MEDICAL HISTORY: Insulin-dependent diabetes, coronary artery disease with recent ND and stenting, obesity, heart failure, reduced EF with diastolic dysfunction, pulmonary hypertension. CURRENT MEDICATIONS: Reviewed. SOCIAL HISTORY: No tobacco. FAMILY HISTORY: Not pertinent in this 53-year-old female. PHYSICAL EXAMINATION: VITAL SIGNS: Blood pressure is 94/55, pulse 90, respirations 23, temperature 36.9. GENERAL: No acute distress. EYES: [place] [address] CONSULTATION Name: MARCUS KABA Room: [address]#: [id number] Admission: 08/07/19 Attend Phys: Mack Howard Discharge: Date of : 69 Report #: [id number] EARS: Externally normal. NECK: Supple. CARDIOVASCULAR: Regular rate. LUNGS: Diminished. ABDOMEN: Soft. LYMPHATICS: Positive edema. PSYCHIATRIC: Awake, alert. LABORATORY DATA: White cell count 7.1, hemoglobin 10.8, platelets 322. Sodium 120, potassium 4.6, chloride 91, bicarbonate 31, BUN 98, creatinine 5.4, glucose 194, calcium 7.7, albumin 2.3. ASSESSMENT AND PLAN: 1. Acute kidney injury with an admission creatinine of 5.8. This is in the setting of blood pressures in the 80s an EF of 25-30% with a pulmonary artery pressure of 55, diastolic dysfunction, lisinopril, Aldactone, with a baseline creatinine 0.9 on 07/25/2019, with recent hospitalization in which she had acute kidney injury and creatinine which peaked at 2 on 07/20/2019. On 07/21/2019, kidney ultrasound was okay. Urinalysis is noted. 2. Hyponatremia. TSH is okay. This is secondary to volume overload. 3. Hypotension, cardiogenic. 4. Coronary artery disease with recent stent. 5. Diastolic dysfunction with reduced ejection fraction of 25-30% and pulmonary hypertension with a pulmonary artery pressure of 55. 6. Hypoalbuminemia with an albumin of 2.3. 7. Insulin-dependent diabetes type 1. 8. Volume overload. PLAN: 1. Check urine protein to creatinine ratio 2. Dobutamine has been started. Cardiology has been consulted. 3. Start Lasix drip. 4. Discontinue IV fluids. 5. Currently on Levophed. Hopefully, that can be weaned down with the dobutamine now being started. 6. Check CK. 7. No acute indication for dialysis at this time. We will follow along closely with you. Thank you for requesting my opinion in the care and management of this patient. <ELECTRONICALLY SIGNED> By: Svetlana Bae MD 08/09/19 1300 1208 1222Adayana Bae MD /nt
[2019-08-10] VITALS (81 sets, daily range): BP systolic 90–125; BP diastolic 40–67
[2019-08-10 04:58] LABS: ALBUMIN 2.2 g/dL (3.4-5.0); CALCIUM 8.3 mg/dL (8.5-10.1); PHOSPHORUS* 4.1 mg/dL (2.5-4.9)
[2019-08-10 05:12] LABS: CREATININE 3.2 mg/dL (0.6-1.3)
[2019-08-11] VITALS (80 sets, daily range): BP systolic 83–118; BP diastolic 42–64
[2019-08-11 04:50] LABS: HEMATOCRIT 28.4 % (37.0-47.0); HEMOGLOBIN 9.7 gm/dL (12.0-15.0); MPV 9.3 fl. (7.2-11.1); RBC 3.12 mil/uL (4.20-5.00); RDW-CV 14.8 % (10.5-14.5); WBC 7.2 thou/uL (4.0-11.0)
[2019-08-11 05:08] LABS: ALBUMIN 2.2 g/dL (3.4-5.0); CALCIUM 8.2 mg/dL (8.5-10.1); CREATININE 2.4 mg/dL (0.6-1.3); MAGNESIUM 1.6 mg/dL (1.8-2.4); PHOSPHORUS* 3.8 mg/dL (2.5-4.9); POTASSIUM 3.4 mmol/L (3.5-5.1)
[2019-08-11 18:05] LABS: BF RBC <1000 /mm3
[2019-08-11 18:10] LABS: TOTAL CELL COUNT 148 /mm3
[2019-08-11 18:12] LABS: TOTAL VOLUME 1350 ml
[2019-08-11 18:13] LABS: CLARITY SLIGHTLY HAZY
[2019-08-11 19:06] LABS: BF LYMPHOCYTES 64 %; BF MONOCYTES 24 %; BF POLYS 12 %; BF TISSUE 8 /100 WBC
[2019-08-11 21:34] LABS: MAGNESIUM 1.6 mg/dL (1.8-2.4); POTASSIUM 3.9 mmol/L (3.5-5.1)
[2019-08-12] VITALS (29 sets, daily range): BP systolic 86–114; BP diastolic 44–74
[2019-08-12 05:29] LABS: CALCIUM 8.6 mg/dL (8.5-10.1); CREATININE 2.4 mg/dL (0.6-1.3); MAGNESIUM 2.2 mg/dL (1.8-2.4); PHOSPHORUS* 3.7 mg/dL (2.5-4.9); POTASSIUM 3.8 mmol/L (3.5-5.1)
[2019-08-13] VITALS: BP 93/55
[2019-08-13 04:00] VITALS: BP 93/61
[2019-08-13 08:00] VITALS: BP 100/55
[2019-08-13 12:00] VITALS: BP 112/55
[2019-08-13 12:54] LABS: ABSOLUTE EOSINOPHILS 0.1 thou/uL (0.0-0.7); ABSOLUTE LYMPHOCYTES 1.1 thou/uL (0.8-5.3); ABSOLUTE MONOCYTES 0.5 thou/uL (0.0-1.2); ABSOLUTE NEUTROPHILS 4.3 thou/uL (1.6-8.1); BASOPHILS 0.7 %; EOSINOPHILS 2.1 %; HEMATOCRIT 29.5 % (37.0-47.0); HEMOGLOBIN 9.7 gm/dL (12.0-15.0); LYMPHOCYTES 17.9 %; MCH 30.3 pg (26.0-34.0); MCHC 32.9 g/dL (28.0-37.0); MCV 92.2 fL (80.0-100.0); MONOCYTES 7.8 %; MPV 8.9 fl. (7.2-11.1); NUCLEATED RBCS 0 /100WBC; PLATELET COUNT* 312 thou/uL (150-400); POLYS 71.5 %; RBC 3.21 mil/uL (4.20-5.00); RDW-CV 14.7 % (10.5-14.5)
[2019-08-13 13:12] LABS: ALBUMIN 2.2 g/dL (3.4-5.0); CALCIUM 8.3 mg/dL (8.5-10.1); CREATININE 2.1 mg/dL (0.6-1.3); MAGNESIUM 1.9 mg/dL (1.8-2.4); POTASSIUM 3.3 mmol/L (3.5-5.1); TOTAL BILIRUBIN 0.6 mg/dL (<0.1-1.0); TOTAL PROTEIN 6.7 g/dL (6.4-8.2)
[2019-08-13 16:00] VITALS: BP 115/73
[2019-08-13 19:15] VITALS: BP 104/68
[2019-08-14 01:00] VITALS: BP 98/65
[2019-08-14 05:18] VITALS: BP 101/67
[2019-08-14 05:58] LABS: ALBUMIN 2.2 g/dL (3.4-5.0); CALCIUM 8.4 mg/dL (8.5-10.1); POTASSIUM 3.8 mmol/L (3.5-5.1); TOTAL BILIRUBIN 0.7 mg/dL (<0.1-1.0); TOTAL PROTEIN 6.8 g/dL (6.4-8.2)
[2019-08-14 07:36] LABS: BODY FLUID AMYLASE 20 U/L (()); BODY FLUID LDH 92 IU/L (()); BODY FLUID PROTEIN 1.9 g/dL (())
[2019-08-14 08:00] VITALS: BP 99/64
[2019-08-14 08:48] LABS: SOURCE THORACENTESIS
[2019-08-14 12:00] VITALS: BP 105/66
[2019-08-14 16:00] VITALS: BP 104/62
[2019-08-14 20:00] VITALS: BP 92/61
[2019-08-15] VITALS: BP 101/64
[2019-08-15 04:00] VITALS: BP 106/66
[2019-08-15 05:42] LABS: HEMATOCRIT 29.5 % (37.0-47.0); HEMOGLOBIN 9.6 gm/dL (12.0-15.0)
[2019-08-15 05:59] LABS: % SATURATION 6 % (20-39); IRON 18 ug/dL (50-175)
[2019-08-15 06:03] LABS: CALCIUM 8.7 mg/dL (8.5-10.1); CREATININE 1.9 mg/dL (0.6-1.3); MAGNESIUM 1.5 mg/dL (1.8-2.4); PHOSPHORUS* 3.6 mg/dL (2.5-4.9); POTASSIUM 3.8 mmol/L (3.5-5.1)
[2019-08-15 12:00] VITALS: BP 95/64
[2019-08-15 16:00] VITALS: BP 92/56
[2019-08-15 16:08] LABS: BODY FLUID PH 7.9 (Not Estab.)
[2019-08-15 20:00] VITALS: BP 96/60
[2019-08-16] VITALS: BP 103/62
[2019-08-16 04:00] VITALS: BP 107/67
[2019-08-16 05:49] LABS: HEMATOCRIT 30.6 % (37.0-47.0); HEMOGLOBIN 10.1 gm/dL (12.0-15.0)
[2019-08-16 06:23] LABS: ALBUMIN 2.2 g/dL (3.4-5.0); CALCIUM 8.8 mg/dL (8.5-10.1); CREATININE 1.5 mg/dL (0.6-1.3); MAGNESIUM 1.6 mg/dL (1.8-2.4); PHOSPHORUS* 3.8 mg/dL (2.5-4.9); POTASSIUM 3.4 mmol/L (3.5-5.1)
[2019-08-16 08:00] VITALS: BP 92/55
[2019-08-16] MEDS ORDERED: TORSEMIDE20 MG PO (11:37)
[2019-08-16] MEDS ORDERED: MIDODRINE HCL2.5 M1 PO (11:39)
[2019-08-16] MEDS ORDERED: TYLENOL325 MG PO (11:42)
--- NOTE | 2019-08-16 14:08 | PATH ---
[address] [address] PATHOLOGY RPT PROCEDURE Name: MARCUS KABA Room: [address] IN [facility]#: [id number] Admission: 08/07/19 Date of : 69 Discharge: Report #: [id number] Path Case #: [id number] Note [facility] Accession Number: [id number] TESTS RESULT FLAG UNITS REF RANGE LAB Clinician Provided Cytology Information No. of containers..01 Other (Miscellaneous) Source: RT PLEURAL FLUID DIAGNOSIS: RT PLEURAL FLUID NEGATIVE FOR MALIGNANT CELLS. FEW MESOTHELIAL CELLS AND INFLAMMATORY CELLS PRESENT. THIS INTERPRETATION INCLUDES EVALUATION OF A CELL BLOCK. Signed out by: 02 Monico Payton MD, Pathologist NPI- [id number] Performed by: 01 Chhaya Perea, Information Management Officer ([facility]) Gross description: 01 50ML, CLEAR YELLOW, 1TP 1CB /LCS 08/14/2019 1214 Local FLAG LEGEND: L-Low Normal,H-High Normal,LL-Alert Low,HH-Alert High <-Panic Low,>-Panic High,A-Abnormal,AA-Critical Abnormal Performed at: [address] [place] [address] Layo Stanton MD, [address] [address] Monico Payton MD, Specimen Comment: A duplicate report has been generated due to demographic updates. Performed at: [address], [place], [place] [id number] MD Layo Stanton MD Phone: [phone]
[2019-08-16 20:33] LABS: SOURCE THORACENTESIS
== END 2019-08-16 14:55 | disposition home health service (06) | DRG 177 ==
LOC: M.ERS 15:06 → M.ICU 16:47 → M.TBA-ER 16:47 → M.ICU 18:21 → M.2W 08-12 21:38
PROVIDERS: Family Medicine; Internal Medicine; Internal Medicine Cardiovascular Disease; Internal Medicine Nephrology; Nurse Practitioner Family; Registered Nurse; ADMIT Internal Medicine
PROC: 02HV33Z Insertion of Infusion Device into Superior Vena Cava, Percutaneous Approach (ICD-10-PCS; principal; 2019-08-07)
PROC: BB4BZZZ Ultrasonography of Pleura (ICD-10-PCS; 2019-08-11)
PROC: 0W993ZZ Drainage of Right Pleural Cavity, Percutaneous Approach (ICD-10-PCS; 2019-08-11)
DX: J69.0 Pneumonitis due to inhalation of food and vomit (principal); N17.0 Acute kidney failure with tubular necrosis; R57.0 Cardiogenic shock; J96.01 Acute respiratory failure with hypoxia; I50.43 Acute on chronic combined systolic (congestive) and diastolic (congestive) heart failure; E87.1 Hypo-osmolality and hyponatremia; J90 Pleural effusion, not elsewhere classified; I95.9 Hypotension, unspecified; I25.10 Atherosclerotic heart disease of native coronary artery without angina pectoris; E66.9 Obesity, unspecified; Z95.5 Presence of coronary angioplasty implant and graft; I27.20 Pulmonary hypertension, unspecified; E87.70 Fluid overload, unspecified; N18.2 Chronic kidney disease, stage 2 (mild); I25.5 Ischemic cardiomyopathy; E10.22 Type 1 diabetes mellitus with diabetic chronic kidney disease; I34.0 Nonrheumatic mitral (valve) insufficiency; F41.9 Anxiety disorder, unspecified; E03.8 Other specified hypothyroidism; E55.9 Vitamin D deficiency, unspecified; E66.3 Overweight; Z68.31 Body mass index [BMI] 31.0-31.9, adult; E78.5 Hyperlipidemia, unspecified; D64.9 Anemia, unspecified; I25.2 Old myocardial infarction; Z79.899 Other long term (current) drug therapy; Z79.82 Long term (current) use of aspirin; Z79.890 Hormone replacement therapy

== ENCOUNTER → 2019-08-21 | Outpatient (CLI) | payer OTHER ==
[~2019-08-21] MED LIST changes: +AMBIEN5 MG PO; +EFFER-K 20 MEQ20 ME1 PO; +LISINOPRIL2.5 MG PO; +METOLAZONE 5 MG5 MG PO; +MIDODRINE HCL2.5 M1 PO; +SPIRONOLACTONE25 MG PO; +TORSEMIDE20 MG PO; +TYLENOL325 MG PO
[2019-08-21 11:47] LABS: CALCIUM 8.7 mg/dL (8.5-10.1); CREATININE 1.6 mg/dL (0.6-1.3); POTASSIUM 3.3 mmol/L (3.5-5.1)
== END ==
LOC: M.RAD 11:00
PROVIDERS: Registered Nurse
DX: I50.43 Acute on chronic combined systolic (congestive) and diastolic (congestive) heart failure (principal); I51.7 Cardiomegaly

== ENCOUNTER → 2019-08-29 | Outpatient (CLI) | payer OTHER ==
[2019-08-29 10:16] LABS: CALCIUM 9.3 mg/dL (8.5-10.1); CREATININE 1.5 mg/dL (0.6-1.3); POTASSIUM 3.9 mmol/L (3.5-5.1)
== END ==
LOC: M.LAB 09:35
PROVIDERS: Registered Nurse
DX: I50.43 Acute on chronic combined systolic (congestive) and diastolic (congestive) heart failure (principal); N19 Unspecified kidney failure; I25.5 Ischemic cardiomyopathy

== ENCOUNTER → 2019-09-05 | Outpatient (CLI) | payer OTHER ==
--- NOTE | 2019-09-05 10:07 | 2DMMODE ---
[place] [address] 2 D/M-MODE ECHOCARDIOGRAM Name: MARCUS KABA Room: [facility]#: [id number] Admission: 09/05/19 Attend Phys: Delores Brower RN Discharge: Date of : 69 Date of Service: 09/05/19 1005 Report #: [id number] THIS REPORT FOR: cc: FAM - No family physician/PCP FAM - No family physician/PCP Truman Conde MD [facility] ~ APPROVED REPORT Study performed: 09/05/2019 08:56:25 EXAM: Comprehensive 2D, Doppler, and color-flow Echocardiogram BSA: 1.77 HR: 95 bpm BP: 101/78 mmHg Other Information Study Quality: Good Indications Congestive Heart Failure 2D Dimensions IVSd: 9.15 (7-11mm) LVOT Diam: 18.43 (18-24mm) LVDd: 49.05 mm PWd: 6.73 (7-11mm) Ascending Ao: 26.01 (22-36mm) LVDs: 42.90 (25-40mm) Aortic Root: 21.06 mm Volumes Left Atrial Volume (Systole) LA ESV Index: 20.10 mL/m2 Aortic Valve AoV Peak Riki.: 0.95 m/s AO Peak Gr.: 3.57 mmHg LVOT Max P.85 mmHg AO Mean Gr.: 2.18 mmHg LVOT Mean P.91 mmHg LVOT Max V: 0.68 m/s AO V2 VTI: 14.28 cm LVOT Mean V: 0.44 m/s ZOILA (VTI): 2.30 cm2 LVOT V1 VTI: 12.29 cm Mitral Valve MV Decel. Time: 120.17 ms MV E Max Riki.: 1.04 m/[place] [address] 2 D/M-MODE ECHOCARDIOGRAM Name: MARCUS KABA Room: [facility]#: [id number] Admission: 09/05/19 Attend Phys: Delores Brower RN Discharge: Date of : 69 Date of Service: 09/05/19 1005 Report #: [id number] MV PHT: 34.85 ms MVA (PHT): 6.31 cm2 TDI E/Lateral E': 17.33 E/Medial E': 14.86 Medial E' Riki.: 0.07 m/s Lateral E' Riki.: 0.06 m/s Pulmonary Valve PV Peak Riki.: 0.61 m/s PV Peak Gr.: 1.46 mmHg Tricuspid Valve RAP Estimate: 5.00 mmHg TR Peak Gr.: 38.28 mmHg RVSP: 43.28 mmHg PA Pressure: 43.28 mmHg Left Ventricle The left ventricle is normal size. There is akinesis of the inferior and inferolateral wall from base to apex. There is normal left ventricular wall thickness. Left ventricular systolic function is moderate to severely decreased. LVEF is 30-35%. Transmitral Doppler flow pattern suggests restrictive physiology. Right Ventricle The right ventricle is normal size. The right ventricular systolic function is normal. Atria Left atrium is mildly dilated. The right atrium size is normal. Aortic Valve The aortic valve is normal in structure. No aortic regurgitation is present. There is no aortic valvular stenosis. Mitral Valve The mitral valve is normal in structure. Moderate mitral regurgitation. No evidence of mitral valve stenosis. Tricuspid Valve The tricuspid valve is normal in structure. Moderate tricuspid regurgitation. The RVSP is 35-40 mmHg. Pulmonic Valve The pulmonary valve is normal in structure. Mild [place]mon[place] [address] 2 D/M-MODE ECHOCARDIOGRAM Name: MARCUS KABA Room: [facility]#: [id number] Admission: 09/05/19 Attend Phys: Delores Brower RN Discharge: Date of : 69 Date of Service: 09/05/19 1005 Report #: [id number] Great Vessels The aortic root is normal in size. IVC is normal in size and collapses >50% with inspiration. Pericardium There is no pericardial effusion. <Conclusion> The left ventricle is normal size. There is normal left ventricular wall thickness. Left ventricular systolic function is moderate to severely decreased. LVEF is 30-35%. Transmitral Doppler flow pattern suggests restrictive physiology. There is akinesis of the inferior and inferolateral wall from base to apex. Left atrium is mildly dilated. Moderate mitral regurgitation. Moderate tricuspid regurgitation. The RVSP is 35-40 mmHg. IVC is normal in size and collapses >50% with inspiration. <ELECTRONICALLY SIGNED> By: Truman Conde MD, FACC 09/05/19 1005 04 04 Truman Conde MD, FACC /INF
== END ==
LOC: M.CRD 08:58
DX: I08.8 Other rheumatic multiple valve diseases (principal); I50.43 Acute on chronic combined systolic (congestive) and diastolic (congestive) heart failure

== ENCOUNTER → 2019-09-15 | Outpatient (CLI) | payer OTHER ==
[2019-09-15 11:58] LABS: CALCIUM 10.4 mg/dL (8.5-10.1); CREATININE 2.4 mg/dL (0.6-1.3); POTASSIUM 4.4 mmol/L (3.5-5.1)
== END ==
LOC: M.LAB 11:15
PROVIDERS: Registered Nurse
DX: I25.5 Ischemic cardiomyopathy (principal)

== ENCOUNTER → 2019-09-22 | Outpatient (CLI) | payer OTHER ==
[2019-09-22 14:23] LABS: CALCIUM 9.6 mg/dL (8.5-10.1); CREATININE 3.6 mg/dL (0.6-1.3); POTASSIUM 4.1 mmol/L (3.5-5.1)
== END ==
LOC: M.LAB 13:58
PROVIDERS: ATTEND Registered Nurse
DX: I50.43 Acute on chronic combined systolic (congestive) and diastolic (congestive) heart failure (principal); N28.9 Disorder of kidney and ureter, unspecified

== ENCOUNTER → 2019-09-26 | Outpatient (CLI) | payer OTHER ==
[2019-09-26 15:33] LABS: CALCIUM 9.5 mg/dL (8.5-10.1); CREATININE 1.4 mg/dL (0.6-1.3); POTASSIUM 3.5 mmol/L (3.5-5.1)
== END ==
LOC: M.LAB 15:09
PROVIDERS: ATTEND Registered Nurse
DX: I50.42 Chronic combined systolic (congestive) and diastolic (congestive) heart failure (principal)

== ENCOUNTER → 2019-10-03 | Outpatient (CLI) | payer OTHER ==
[2019-10-03 13:53] LABS: CALCIUM 9.1 mg/dL (8.5-10.1); CREATININE 1.3 mg/dL (0.6-1.3); POTASSIUM 3.1 mmol/L (3.5-5.1)
== END ==
LOC: M.LAB 13:21
PROVIDERS: ATTEND Registered Nurse
DX: I50.42 Chronic combined systolic (congestive) and diastolic (congestive) heart failure (principal)

== ENCOUNTER → 2019-11-23 | Outpatient (CLI) | payer OTHER ==
[2019-11-23 08:49] LABS: ALBUMIN 3.1 g/dL (3.4-5.0); ALKALINE PHOSPHATASE 193 U/L (46-116); ANION GAP 8 mmol/L (7-16); BUN 19 mg/dL (7-18); CALCIUM 9.3 mg/dL (8.5-10.1); CHLORIDE 101 mmol/L (98-107); CHOLESTEROL 104 mg/dL (<200); CK-MB MASS 0.7 ng/mL (<0.5-3.6); CO2 30 mmol/L (21-32); CREATININE 1.3 mg/dL (0.6-1.3); DIRECT BILIRUBIN < 0.1 mg/dL (<0.1-0.3); GLUCOSE 256 mg/dL (70-99); HDL CHOLESTEROL 44 mg/dL (>40); LDL CHOLESTEROL 49 mg/dL (<100); POTASSIUM 4.1 mmol/L (3.5-5.1); SGOT 104 U/L (15-37); SGPT 77 U/L (30-65); SODIUM 139 mmol/L (136-145); TC:HDL 2.4 Ratio (Not establshd); TOTAL BILIRUBIN 0.6 mg/dL (<0.1-1.0); TOTAL PROTEIN 7.6 g/dL (6.4-8.2); TRIGLYCERIDE 57 mg/dL (<150); VLDL 11 mg/dL (<40)
[2019-11-23 08:55] LABS: SERUM ASSESSMENT Clear
== END ==
LOC: M.LAB 07:25
PROVIDERS: ATTEND Nurse Practitioner
DX: E78.49 Other hyperlipidemia (principal); E87.6 Hypokalemia

== ENCOUNTER → 2019-12-15 | Outpatient (CLI) | payer OTHER ==
[2019-12-15 16:19] LABS: ALBUMIN 3.6 g/dL (3.4-5.0); DIRECT BILIRUBIN 0.2 mg/dL (<0.1-0.3); TOTAL BILIRUBIN 0.5 mg/dL (<0.1-1.0); TOTAL PROTEIN 8.6 g/dL (6.4-8.2)
== END ==
LOC: M.LAB 15:50
PROVIDERS: ATTEND Nurse Practitioner
DX: E78.49 Other hyperlipidemia (principal)